=== PATIENT | female | born 2000 | race Caucasian/White ===

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

== ENCOUNTER 2021-04-21 11:14 | Outpatient (CLI) | payer OTHER, SELFPAY ==
--- NOTE | ~2021-04-21 | XR_ITS ---
XR thoracic spine 3V DATE: 04/21/2021 11:36 INDICATION: Thoracic back pain TECHNIQUE: AP, lateral and swimmer views COMPARISON: None FINDINGS: Normal alignment of the thoracic spine. No fracture or dislocation or bone destruction. T he thoracic pedicles are intact. No paraspinal soft tissue thickening. IMPRESSION: Negative Reviewed, dictated and finalized at location A. FILLETER IMPRESSION: Negative
--- NOTE | ~2021-04-21 | XR_ITS ---
XR lumbar spine 2-3V DATE: 04/21/2021 11:36 INDICATION: Back pain after lifting injury TECHNIQUE: AP, lateral and coned lateral lumbosacral views COMPARISON: None FINDINGS: Normal alignment of the lumbar spine. No fracture or dislocation or spondylolisthesis. Th e lumbar pedicles are intact. Lumbar and lumbar interspaces are well preserved. The sacroiliac join ts are intact. IMPRESSION: Negative Reviewed, dictated and finalized at location A. MAN IMPRESSION: Negative
== END 2021-04-21 11:15 | disposition home or self-care (01) ==
LOC: CHSIMG 11:15
PROVIDERS: PCP Family Medicine; Visit Provider Family Medicine
DX: M54.9 Dorsalgia, unspecified (principal)
CPT/HCPCS: 72072; 72100

== ENCOUNTER 2024-03-13 11:54 | Outpatient (CLI) | payer MEDICAID, SELFPAY ==
[2024-03-13 12:57] LABS: HIV 1/2 AB Negative (Negative)
[2024-03-13 13:17] LABS: HIV 1 P24 AG Negative (Negative)
[2024-03-14 10:22] LABS: Hepatitis B Surface Antigen NON-REACTIVE (NON-REACTIVE); Hepatitis C Virus Antibody NON-REACTIVE (NON-REACTIVE)
[2024-03-14 10:33] LABS: Hepatitis A Antibody IgM NON-REACTIVE (NON-REACTIVE); Hepatitis B Core Antibody NON-REACTIVE (NON-REACTIVE)
[2024-03-19 11:59] LABS: RPR Screen NON-REACTIVE (NON-REACTIVE)
== END 2024-03-13 11:55 | disposition home or self-care (01) ==
LOC: CHSLAB 11:55
PROVIDERS: PCP Family Medicine; Visit Provider Student in an Organized Health Care Education/Training Program
DX: Z11.3 Encounter for screening for infections with a predominantly sexual mode of transmission (principal)
CPT/HCPCS: 36415; 80074; 86592; 86695; 86696; 87389; 87806

== ENCOUNTER 2024-03-28 17:58 | Outpatient (CLI) | payer MEDICAID, SELFPAY ==
[2024-03-28 18:41] LABS: Beta HCG Quantitative < 1.00 mIU/mL (0-6)
== END 2024-03-28 17:59 | disposition home or self-care (01) ==
PROVIDERS: PCP Family Medicine; Visit Provider Student in an Organized Health Care Education/Training Program
DX: Z30.9 Encounter for contraceptive management, unspecified (principal)
CPT/HCPCS: 36415; 84702